=== PATIENT | female | born 1960 | race Caucasian/White ===

== ENCOUNTER 2019-04-21 07:24 | Outpatient (CLI) | payer OTHER ==
[2019-04-21 08:01] LABS: BASOPHILS % 0.5 % (0.0-1.5); NEUTROPHILS # 3.4 # k/uL (1.4-7.7)
[2019-04-21 09:11] LABS: HDL 44 mg/dL (>40); eGFR (Non-African) > 60
== END 2019-04-21 07:26 ==
LOC: LAB 07:24
PROVIDERS: ATTEND Family Medicine
DX: Z13.29 Encounter for screening for other suspected endocrine disorder (principal); Z13.0 Encounter for screening for diseases of the blood and blood-forming organs and certain disorders involving the immune mechanism
CPT/HCPCS: 36415; 80053; 80061; 84443; 85025